=== PATIENT | female | born 1930 | race Caucasian/White ===

== ENCOUNTER 2019-07-18 13:14 | Inpatient (IN) | payer MEDICARE, BC ==
[2019-07-18 13:57] LABS: Basophils % (A) 1 %; Eosinophils % (A) 0 %; HCT 37.6 % (34.0-46.0); HGB 12.2 gm/dL (11.4-16.0); Lymphocytes # (A) 1.7 k/uL (1.0-4.8); Lymphocytes % (A) 29 %; MCH 31.3 pg (25.0-35.0); MCHC 32.3 g/dL (31.0-37.0); MCV 96.7 fL (80.0-100.0); Mean Platelet Volume 7.3; Monocytes # (A) 0.3 k/uL (0-1.0); Monocytes % (A) 6 %; Neutrophils # (A) 3.7 k/uL (1.3-7.7); Neutrophils % (A) 62 %; Platelet Count 208 k/uL (150-450); RBC 3.89 m/uL (3.80-5.40); RDW 15.3 % (11.5-15.5); WBC 5.9 k/uL (3.8-10.6)
[2019-07-18 14:08] LABS: Albumin 4.6 g/dL (3.5-5.0); Calcium 10.1 mg/dL (8.4-10.2); Total Bilirubin 1.1 mg/dL (0.2-1.3); Total Protein 8.2 g/dL (6.3-8.2)
[2019-07-18] MEDS ORDERED: DEXTROSE 50% SYRINGE 50 ML IVP STA (14:28)
[2019-07-18] MEDS ORDERED: SODIUM POLYSTYRENE SULFONATE 15 GM/60 ML BOTTLE PO STA (14:29)
[2019-07-18] MEDS ORDERED: INSULIN REGULAR 100 UNIT/ML VIAL IV ONE (14:29)
[2019-07-18] MEDS ORDERED: SODIUM CHLORIDE 0.9% 1,000 ML IV STA (14:30)
[2019-07-18] MEDS ORDERED: NALOXONE 0.4 MG/ML 1 ML VIAL IV PRN (14:30)
--- NOTE | 2019-07-18 14:37 | ED ---
General Adult HPI - General Chief complaint: Recheck/Abnormal Lab/Rx Stated complaint: abnormal labs Time Seen by Provider: 07/18/19 13:36 Source: patient, family Mode of arrival: ambulatory Limitations: no limitations - History of Present Illness Initial comments: Patient is an 89-year-old female presenting to the emergency department with a chief complaint of abnormal labs. Patient reports she was contacted by her primary care to inform her that her potassium levels are elevated. Patient reports she had labs drawn several days prior and her potassium levels are only slightly elevated at the time. This was a repeat blood draw. Patient denies any nausea or vomiting, denies weakness, fatigue or chest palpitations. Patient does have a history of A. fib. - Related Data Allergies Allergy/AdvReac Type Severity Reaction Status Date / Time No Known Allergies Allergy Verified 07/18/19 13:22 Review of Systems ROS Statement: Those systems with pertinent positive or pertinent negative responses have been documented in the HPI. ROS Other: All systems not noted in ROS Statement are negative. Past Medical History Past Medical History: Atrial Fibrillation, Hypertension, Osteoarthritis (OA) Additional Past Medical History / Comment(s): GOUT History of Any Multi-Drug Resistant Organisms: None Reported Past Surgical History: Hysterectomy, Orthopedic Surgery Additional Past Surgical History / Comment(s): Lung Past Psychological History: No Psychological Hx Reported Smoking Status: Former smoker Past Alcohol Use History: Occasional Past Drug Use History: None Reported General Exam Limitations: no limitations General appearance: alert, in no apparent distress Head exam: Present: atraumatic, normocephalic, normal inspection Eye exam: Present: normal appearance Pupils: Present: normal accommodation ENT exam: Present: normal exam, mucous membranes moist, normal external ear exam Neck exam: Present: normal inspection, full ROM Respiratory exam: Present: normal lung sounds bilaterally Cardiovascular Exam: Present: regular rate, normal rhythm, normal heart sounds Extremities exam: Present: normal inspection, full ROM Back exam: Present: normal inspection, full ROM Neurological exam: Present: alert, oriented X3 Psychiatric exam: Present: normal affect, normal mood Skin exam: Present: warm, intact, normal color Course Vital Signs 07/18/19 13:19 Temperature 97.3 F L Pulse Rate 82 Respiratory 20 Rate Blood Pressure 152/76 O2 Sat by Pulse 99 Oximetry Medical Decision Making - Medical Decision Making Patient is an 89-year-old female presenting to the emergency department with a c hief complaint of abnormal labs. Patient was sent to the ED by her primary care for hyperkalemia. Repeat labs indicate potassium levels of 6.0. Patient also has decreased kidney function which could be due to dehydration. The hypokalemia could also be due to dehydration. Patient given fluids, calcium gluconate, D50, insulin ankle axilla. EKG does show peaked T waves in V4 through V6. Patient will be admitted for further medical management. Case discussed with Dr. Hernandez. Admitting physician is . - Lab Data Result diagrams: 07/18/19 13:38 07/18/19 13:38 Lab Results 07/18/19 07/18/19 Range/Units 13:38 13:38 WBC 5.9 (3.8-10.6) k/uL RBC 3.89 (3.80-5.40) m/uL Hgb 12.2 (11.4-16.0) gm/dL Hct 37.6 (34.0-46.0) % MCV 96.7 (80.0-100.0) fL MCH 31.3 (25.0-35.0) pg MCHC 32.3 (31.0-37.0) g/dL RDW 15.3 (11.5-15.5) % Plt Count 208 (150-450) k/uL Neutrophils % 62 % Lymphocytes % 29 % Monocytes % 6 % Eosinophils % 0 % Basophils % 1 % Neutrophils # 3.7 (1.3-7.7) k/uL Lymphocytes # 1.7 (1.0-4.8) k/uL Monocytes # 0.3 (0-1.0) k/uL Eosinophils # 0.0 (0-0.7) k/uL Basophils # 0.0 (0-0.2) k/uL Sodium 139 (137-145) mmol/L Potassium 6.0 H (3.5-5.1) mmol/L Chloride 104 (98-107) mmol/L Carbon Dioxide 24 (22-30) mmol/L Anion Gap 11 mmol/L BUN 43 H (7-17) mg/dL Creatinine 1.10 H (0.52-1.04) mg/dL Est GFR (CKD-EPI)AfAm 52 (>60 ml/min/1.73 sqM) Est GFR (CKD-EPI)NonAf 45 (>60 ml/min/1.73 sqM) Glucose 115 H (74-99) mg/dL Calcium 10.1 (8.4-10.2) mg/dL Total Bilirubin 1.1 (0.2-1.3) mg/dL AST 26 (14-36) U/L ALT 10 (9-52) U/L Alkaline Phosphatase 65 (38-126) U/L Total Protein 8.2 (6.3-8.2) g/dL Albumin 4.6 (3.5-5.0) g/dL Disposition Clinical Impression: Hyperkalemia, Acute electrocardiogram changes Disposition: ADMITTED IP TO THIS [facility] Condition: Stable Instructions (If sedation given, give patient instructions): Hyperkalemia (ED) Additional Instructions: Patient will be admitted. Is patient prescribed a controlled substance at d/c from ED?: No Referrals: Yo Valdivia MD [Primary Care Provider] - 1-2 days Time of Disposition: 14:37
[2019-07-18] MEDS ORDERED: CALCIUM GLUCONATE 1 GM in SODIUM CHLORIDE 0.9% 100 ML IVPB ONE (14:45)
[2019-07-18] MEDS: SODIUM CHLORIDE 0.9% 1,000 ML IV SCH (15:05)
[2019-07-18 15:25] VITALS: RESP 16
[2019-07-18 16:38] LABS: Appearance,Urine Clear (Clear); Bacteria,Urine Rare /hpf; Bilirubin,Urine Negative (Negative); Blood,Urine Negative (Negative); Color,Urine Light Yellow; Glucose,Urine (UA) Negative (Negative); Ketones,Urine Negative (Negative); Leukocyte Esterase,Urine Small (Negative); Mucus,Urine Rare /hpf; Nitrite,Urine Negative (Negative); PH, Urine 6.5 (5.0-8.0); Protein,Urine Negative (Negative); RBC,Urine 1 /hpf (0-5); Specific Gravity,Urine 1.009 (1.001-1.035); Squamous Epithelial Cell,Urine <1 /hpf (0-4); Urobilinogen,Urine <2.0 mg/dL (<2.0); WBC,Urine 16 /hpf (0-5)
[2019-07-18] MEDS: SOTALOL 80 MG TAB PO SCH (20:41)
[2019-07-18] MEDS: APIXABAN 2.5 MG TABLET PO SCH (20:41)
--- NOTE | 2019-07-18 23:05 | P.HPIM ---
History of Present Illness H&P Date: 07/18/19 Chief Complaint: Hyperkalemia Patient is a 89-year-old female with a known history of paroxysmal atrial fibrillation on anticoagulation, hypertension, osteoarthritis and gout and previous history of smoking was sent to Hospital by her primary care physician due to elevated potassium level. Patient had repeat potassium done in the ER showed 6.0. Patient was given insulin/dextrose. Patient does take lisinopril/hydrochlorothiazide and sotalol at home. Denied any nausea vomiting or diarrhea. Denied any [id number] pain medication use. No chest pain or shortness of breath or palpitations. BUN and 43 and creatinine 1.1 EKG showed normal sinus rhythm with peaked T waves. Review of Systems Constitutional: Patient denies any fever or chills . No generalized weakness or weight loss. Abdomen: Patient denied nausea vomiting and diarrhea and abdominal pain. Cardiovascular: Patient denies any chest pain or short of breath no palpitations. Respiratory: patient denied any cough is from production. No shortness of breath Neurologic: Patient denied any numbness or tingling headache. Musculoskeletal: Patient denies any complaints of joint swelling or deformity. Skin: Negative Psychiatric: Negative Endocrine: No heat or cold intolerance. No recent weight gain. Genitourinary: No dysuria or hematuria. All other 14 point ROS negative except the above Past Medical History Past Medical History: Atrial Fibrillation, Hypertension, Osteoarthritis (OA) Additional Past Medical History / Comment(s): GOUT History of Any Multi-Drug Resistant Organisms: None Reported Past Surgical History: Hysterectomy, Orthopedic Surgery Additional Past Surgical History / Comment(s): Lung Past Psychological History: No Psychological Hx Reported Smoking Status: Former smoker Past Alcohol Use History: Occasional Past Drug Use History: None Reported Medications and Allergies Home Medications Medication Instructions Recorded Confirmed Type Allopurinol [Zyloprim] 100 mg PO DAILY 07/18/19 07/18/19 History Apixaban [Eliquis] 2.5 mg PO BID 07/18/19 07/18/19 History Hydrochlorothiazide [Hydrodiuril] 25 mg PO DAILY 07/18/19 07/18/19 History Lisinopril [Zestril] 20 mg PO DAILY 07/18/19 07/18/19 History Sotalol [Betapace] 80 mg PO Q12H 07/18/19 07/18/19 History Allergies Allergy/AdvReac Type Severity Reaction Status Date / Time No Known Allergies Allergy Verified 07/18/19 14:37 Physical Exam Vitals: Vital Signs Temp Pulse Resp BP Pulse Ox 07/18/19 15:24 97.9 F 65 16 150/99 99 07/18/19 13:19 97.3 F L 82 20 152/76 99 Intake and Output 07/18/19 07/18/19 07/18/19 06:59 14:59 22:59 Other: Weight 49.895 kg PHYSICAL EXAMINATION: Patient is lying in the bed comfortably, no acute distress, awake alert and oriented.. HEENT: Normocephalic. Neck is supple. Pupils reactive. Nostrils clear. Oral cavity is moist. Ears reveal no drainage. Neck reveals no JVD, carotid bruits, or thyromegaly. CHEST EXAMINATION: Trachea is central. Symmetrical expansion. Lung collins clear to auscultation and percussion. CARDIAC: Normal S1, S2 with no gallops. No murmurs ABDOMEN: Soft. Bowel sounds normal. No organomegaly. No abdominal bruits. Extremities: reveal no edema. No clubbing or cyanosis Neurologically awake, alert, oriented x3 with well-coordinated movements. No focal deficits noted Skin: No rash or skin lesions. Psychiatric: Coperative. Nonsuicidal Musculoskeletal: No joint swelling or deformity. Normal range of motion. Results CBC & Chem 7: 07/18/19 13:38 07/18/19 13:38 Labs: Abnormal Lab Results - Last 24 Hours (Table) 07/18/19 Range/Units 13:38 Potassium 6.0 H (3.5-5.1) mmol/L BUN 43 H (7-17) mg/dL Creatinine 1.10 H (0.52-1.04) mg/dL Glucose 115 H (74-99) mg/dL Thrombosis Risk Factor Assmnt - DVT/VTE Prophylaxis DVT/VTE Prophylaxis: Pharmacologic Prophylaxis ordered Assessment and Plan Assessment: Hyperkalemia with EKG changes/ Peaked T waves. Hyperkalemia likely due to acute kidney injury Acute kidney injury most likely prerenal Hypertension Paroxysmal atrial fibrillation on anticoagulation Gout Osteoarthritis Previous history of smoking Plan: Patient will be continued on IV hydration and monitor renal function. Repeat potassium level. Will hold hydrochlorothiazide and lisinopril. Continue with sotalol. Continue with telemetry monitoring. Further recommendations based on the clinical course. Time with Patient: Greater than 30
[2019-07-19] MEDS: SODIUM CHLORIDE 0.9% 1,000 ML IV SCH ×2 (00:02→08:27)
[2019-07-19 06:34] LABS: Albumin 2.9 g/dL (3.5-5.0); Calcium 8.6 mg/dL (8.4-10.2); Potassium 4.5 mmol/L (3.5-5.1); Total Bilirubin 0.7 mg/dL (0.2-1.3); Total Protein 5.4 g/dL (6.3-8.2)
[2019-07-19] MEDS: SOTALOL 80 MG TAB PO SCH (08:27)
[2019-07-19] MEDS: APIXABAN 2.5 MG TABLET PO SCH (08:27)
[2019-07-19 08:30] VITALS: TEMP 97.7
[2019-07-19] MEDS ORDERED: ALLOPURINOL 100 MG TAB PO SCH (09:00)
[2019-07-19 11:46] VITALS: BP 139/71; PULSE 62
[2019-07-19 12:56] VITALS: BMI 18.8
== END 2019-07-19 15:46 | disposition home or self-care (01) | DRG 641 ==
LOC: EC 13:14 → 3SCARD 14:26
PROVIDERS: ADMIT Internal Medicine; ATTEND Internal Medicine
DX: E87.5 Hyperkalemia (principal); N17.9 Acute kidney failure, unspecified; I10 Essential (primary) hypertension; I48.0 Paroxysmal atrial fibrillation; M10.9 Gout, unspecified; M19.90 Unspecified osteoarthritis, unspecified site; Z79.01 Long term (current) use of anticoagulants; Z79.899 Other long term (current) drug therapy; Z87.891 Personal history of nicotine dependence; Z90.710 Acquired absence of both cervix and uterus; R94.31 Abnormal electrocardiogram [ECG] [EKG]
CPT/HCPCS: 36415; 80053; 81001; 85025; 93005; 96365; 96375; 99285

== ENCOUNTER 2019-11-04 17:02 | Inpatient (IN) | payer MEDICARE, BC ==
[2019-11-04] MEDS ORDERED: NITROGLYCERIN SL TABS 0.4 MG TAB SUBLINGUAL PRN (17:37)
--- NOTE | 2019-11-04 17:37 | ED ---
General Adult HPI - General Chief complaint: Recheck/Abnormal Lab/Rx Stated complaint: fall Time Seen by Provider: 11/04/19 17:10 Source: patient, EMS, RN notes reviewed, old records reviewed Mode of arrival: EMS Limitations: no limitations - History of Present Illness Initial comments: This is an 89-year-old female presents emergency Department from [facility]. Patient went to [facility] because she fell today and hit her face on the floor she does not remember anything prior to the event or the event itself. Patient does have a nasal bone fracture. Patient had a CAT scan of the head and neck at [facility] as well as the chest and were all read as negative. Patient's EKG shows some peaked T waves but the troponin was mildly OF a one to send the patient here for the syncopal episode and the elevated troponin. Patient currently has no complaints whatsoever. Patient is on eliquis. - Related Data Home Medications Medication Instructions Recorded Confirmed Allopurinol [Zyloprim] 100 mg PO DAILY 07/18/19 07/18/19 Apixaban [Eliquis] 2.5 mg PO BID 07/18/19 07/18/19 Lisinopril [Zestril] 20 mg PO DAILY 07/18/19 07/18/19 Sotalol [Betapace] 80 mg PO Q12H 07/18/19 07/18/19 Allergies Allergy/AdvReac Type Severity Reaction Status Date / Time No Known Allergies Allergy Verified 07/18/19 14:37 Review of Systems ROS Statement: Those systems with pertinent positive or pertinent negative responses have been documented in the HPI. ROS Other: All systems not noted in ROS Statement are negative. Past Medical History Past Medical History: Atrial Fibrillation, Hypertension, Osteoarthritis (OA) Additional Past Medical History / Comment(s): GOUT History of Any Multi-Drug Resistant Organisms: None Reported Past Surgical History: Hysterectomy, Orthopedic Surgery Additional Past Surgical History / Comment(s): Lung Past Psychological History: No Psychological Hx Reported Smoking Status: Former smoker Past Alcohol Use History: Occasional Past Drug Use History: None Reported General Exam - General Exam Comments Initial Comments: GENERAL: Patient is well-developed and well-nourished. Patient is nontoxic and well- hydrated and is in no acute distress. ENT: Neck is soft and supple. No significant lymphadenopathy is noted. Oropharynx is clear. Moist mucous membranes. Neck has full range of motion without eliciting any pain. EYES: The sclera were anicteric and conjunctiva were pink and moist. Extraocular movements were intact and pupils were equal round and reactive to light. Eyelids were unremarkable. PULMONARY: Unlabored respirations. Good breath sounds bilaterally. No audible rales rhonchi or wheezing was noted. CARDIOVASCULAR: There is a regular rate and rhythm without any murmurs gallops or rubs. ABDOMEN: Soft and nontender with normal bowel sounds. No palpable organomegaly was noted. There is no palpable pulsatile mass. SKIN: Patient has ecchymosis to the right side of the neck and in the infraorbital regions. NEUROLOGIC: Patient is alert and oriented x3. Cranial nerves II through XII are grossly intact. Motor and sensory are also intact. Normal speech, volume and content. Symmetrical smile. MUSCULOSKELETAL: Normal extremities with adequate strength and full range of motion. Patient has nasal bone tenderness LYMPHATICS: No significant lymphadenopathy is noted PSYCHIATRIC: Normal psychiatric evaluation. Limitations: no limitations Course Vital Signs 11/04/19 17:07 Temperature 97.7 F Pulse Rate 68 Respiratory 20 Rate Blood Pressure 193/85 O2 Sat by Pulse 98 Oximetry Medical Decision Making - Medical Decision Making EKG shows normal sinus rhythm at 63 bpm NV interval 174 QRS is 74 Q-T intervals 450 QTC is 460. Patient's EKG shows no ST segment elevation or depression or T wave abnormalities are noted. Patient does have some peaked T waves in the precordial leads. I spoke with Dr. Fragoso he agreed to admit the patient admitted the patient I consult cardiology. Disposition Clinical Impression: Syncope and collapse, Nasal fracture, Elevated troponin Disposition: ADMITTED IP TO THIS HOSP Referrals: Yo Valdivia MD [Primary Care Provider] - 1-2 days Time of Disposition: 17:37
[2019-11-04] MEDS ORDERED: hydrALAZINE HCL 20 MG/ML 1 ML VIAL IVP STA (18:05)
[2019-11-04] MEDS: NITROGLYCERIN OINT 1 INCH/GM PACKET TOPICAL SCH ×2 (18:11→22:50)
[2019-11-04 20:39] LABS: Glucose,Whole Blood 121 mg/dL (75-99)
[2019-11-05] MEDS ORDERED: ACETAMINOPHEN TAB 500 MG TAB PO PRN (00:18)
[2019-11-05] MEDS: ALPRAZolam 0.25 MG TAB PO PRN ×2 (00:28→17:40)
[2019-11-05] MEDS: NITROGLYCERIN OINT 1 INCH/GM PACKET TOPICAL SCH ×3 (05:24→17:40)
[2019-11-05 06:01] LABS: Cholesterol 120 mg/dL (<200); HDL Cholesterol 36 mg/dL (40-60); LDL Cholesterol,Calculated 70 mg/dL (0-99); Triglycerides 70 mg/dL (<150)
[2019-11-05 06:10] LABS: Glucose,Whole Blood 89 mg/dL (75-99)
[2019-11-05] MEDS: ASPIRIN 325 MG TAB PO SCH (09:12)
--- NOTE | 2019-11-05 09:22 | P.CRDCN ---
<Jocelyne Craig E - Last Filed: 11/05/19 09:10> History of Present Illness Consult date: 11/05/19 Requesting physician: Glenys Fragoso Consult reason: sycope Chief complaint: Syncope History of present illness: This is an 89-year-old female who follows with Dr. Neri in the office. 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 Patient is providing history as well as her son who is at the bedside. According to the patient, she had one fall because she became unsteady on her feet, she hit the back of her head and has a swollen area there, subsequent to that the patient states that she had an episode where she fell flat on her face, she is unsure as to whether or not she lost consciousness or how she even fell to the floor, it appears that it was likely a syncopal episode. She does state that she gets intermittent episodes of lightheadedness and does get up from a sitting position to standing position fairly quickly when she feels lightheaded. Her laboratory data as well as other testing was performed at [facility], her initial troponin there was a 0.039, her EKG showed a normal sinus rhythm with peaked T waves, nonspecific ST-T wave changes. She was noted to have mild abnormality in d-dimer, a CAT scan of the head was performed which revealed a hematoma, no other acute findings. A chest x-ray was also performed which showed some mild COPD with no acute changes. Blood pressure here 138/60 with a heart rate in the 60s, 97% on room air, she is afebrile. Troponin 0.038, 0.051, 0.063. Creatinine is 0.8, CBC is normal. At the time of my examination this morning, the patient is sitting up at bedside, states that she feels well, denies any dizziness or lightheadedness. Her most recent office visit with Dr. Neri was in May 2019, she was directed at that time to take a regular a blood pressure recording at home, and was also recommended to have a 24-hour Holter before her next visit. Past Medical History Past Medical History: Atrial Fibrillation, Hypertension, Osteoarthritis (OA) Additional Past Medical History / Comment(s): GOUT History of Any Multi-Drug Resistant Organisms: None Reported Past Surgical History: Hysterectomy, Orthopedic Surgery Additional Past Surgical History / Comment(s): Lung sx Past Anesthesia/Blood Transfusion Reactions: No Reported Reaction Past Psychological History: No Psychological Hx Reported Smoking Status: Former smoker Past Alcohol Use History: Occasional Past Drug Use History: None Reported Medications and Allergies Home Medications Medication Instructions Recorded Confirmed Type Allopurinol [Zyloprim] 100 mg PO DAILY 07/18/19 11/04/19 History Apixaban [Eliquis] 2.5 mg PO BID 07/18/19 11/04/19 History Lisinopril [Zestril] 20 mg PO DAILY 07/18/19 11/04/19 History Sotalol [Betapace] 80 mg PO Q12H 07/18/19 11/04/19 History ALPRAZolam [Xanax] 0.25 mg PO HS PRN 11/04/19 11/04/19 History Hydrochlorothiazide [Hydrodiuril] 25 mg PO DAILY 11/04/19 11/04/19 History Allergies Allergy/AdvReac Type Severity Reaction Status Date / Time No Known Allergies Allergy Verified 07/18/19 14:37 Physical Exam Vitals: Vital Signs Temp Pulse Pulse Resp BP BP Pulse Ox 11/05/19 04:00 97.7 F 69 16 139/64 97 11/04/19 22:46 97.9 F 77 18 167/98 97 11/04/19 20:29 97.7 F 72 18 155/77 97 11/04/19 19:57 73 18 128/62 97 11/04/19 19:55 71 18 128/62 97 11/04/19 18:45 72 20 155/77 98 11/04/19 17:10 78 20 198/101 98 11/04/19 17:07 97.7 F 68 20 193/85 98 Intake and Output 11/04/19 11/05/19 11/05/19 22:59 06:59 14:59 Intake Total 250 Balance 250 Intake: Oral 250 Other: # Voids 2 Weight 51.71 kg 49.5 kg PHYSICAL EXAMINATION: GENERAL: 89-year-old female in no acute distress at the time of my examination HEENT: Head is atraumatic, normocephalic. Pupils equal, round. Sclera anicteric. Conjunctiva are clear. Mucous membranes of the mouth are moist. Neck is supple. There is no elevated jugular venous pressure. No carotid bruit is heard. Patient does have an area of swelling to her posterior scalp area, she has some ecchymosis noted below the eyes and on the nose. HEART EXAMINATION: Heart S1 and S2 systolic ejection murmur is heard CHEST EXAMINATION:[ Lungs are clear to auscultation and precussion. No chest wall tenderness is noted on palpation or with deep breathing.] ABDOMEN: [ Soft, nontender. Bowel sounds are heard. No organomegaly noted]. EXTREMITIES:[ 2+ peripheral pulses with no evidence of peripheral edema and no calf tenderness noted]. NEUROLOGIC [patient is awake, alert and oriented 3 .] . Results Cardiac Enzymes 11/04/19 11/04/19 11/05/19 Range/Units 17:27 23:46 05:30 Troponin I 0.038 H* 0.051 H* 0.063 H* (0.000-0.034) ng/mL Lipids 11/05/19 Range/Units 05:30 Triglycerides 70 (<150) mg/dL Cholesterol 120 (<200) mg/dL HDL Cholesterol 36 L (40-60) mg/dL Current Medications Generic Name Dose Route Start Last Admin Trade Name Freq PRN Reason Stop Dose Admin Acetaminophen 500 mg 11/05/19 00:18 11/05/19 00:29 Tylenol Tab PO 500 mg Q6HR PRN Administration Fever and/ or Pain Alprazolam 0.25 mg 11/05/19 00:17 11/05/19 00:28 Xanax PO 0.25 mg DAILY PRN Administration Anxiety Aspirin 325 mg 11/05/19 09:00 Aspirin PO DAILY YOVANY Nitroglycerin 0.4 mg 11/04/19 17:37 Nitrostat SUBLINGUAL Q5M PRN Chest Pain Nitroglycerin 1 inch 11/04/19 18:00 11/05/19 05:24 Nitro-Bid Oint TOPICAL Not Given Q6HR YOVANY Intake and Output 11/04/19 11/05/19 11/05/19 22:59 06:59 14:59 Intake Total 250 Balance 250 Intake: Oral 250 Other: # Voids 2 Weight 51.71 kg 49.5 kg EKG Interpretations (text) EKG shows normal sinus rhythm with peaked T waves, no acute changes noted. Assessment and Plan Plan: Assessment and plan #1 syncope, rule out cardiac causes #2 abnormal d-dimer, rule out possibility of pulmonary embolism #3 history of hypertension #4 paroxysmal atrial fibrillation on Eliquis for anticoagulation, remaining in normal sinus rhythm at this time. #5 history of prior nicotine dependence #6 abnormality in troponin, rule out possibility of pulmonary embolism, patient denies any chest discomfort, not clinically suggestive of acute coronary syndrome. Plan We will obtain a CAT scan of the chest to rule out possibility of pulmonary embolism. We will also obtain an echocardiogram with Doppler study, check orthostatic heart rate and blood pressure every shift. Monitor for any tachycardia or bradycardia arrhythmias for possible source of her syncope. Patient may also benefit from a tilt table test. We will resume the patient's Eliquis and sotalol. Further recommendations to follow. DNP note has been reviewed, I agree with a documented findings and plan of care. Patient was seen and examined. <Julio Culp - Last Filed: 11/06/19 11:32> History of Present Illness Reason for Consult (text): Patient presented with a syncopal spell with loss of consciousness and facial trauma. She has a history of paroxysmal atrial fibrillation and is on sotalol 80 mg twice daily. So far no bradycardia has been detected on telemetry monitoring I had a very detailed discussion with her son and explained the pros and cons of various types of monitors and recommended implantation of loop monitor. He understood exactly why a loop monitor would be the most beneficial approach to determine whether she has paroxysmal bradycardic episodes or if her syncope is related to tachyarrhythmias which she does not feel or if her syncopal spells and future associated with normal rhythm and rate Either way it will help with formulating a plan of treatment Physical Exam Vitals: Vital Signs Temp Pulse Pulse Pulse Resp BP BP 11/06/19 08:00 96.1 F L 80 75 16 131/63 134/63 11/06/19 04:00 98.5 F 62 18 11/05/19 23:39 98.1 F 66 18 11/05/19 23:37 76 18 11/05/19 20:00 98.7 F 76 18 11/05/19 16:00 75 16 11/05/19 12:00 78 16 BP Pulse Ox 11/06/19 08:00 98 11/06/19 04:00 144/75 94 L 11/05/19 23:39 143/69 95 11/05/19 23:37 11/05/19 20:00 149/71 97 11/05/19 16:00 170/111 97 11/05/19 12:00 149/84 98 Intake and Output 11/05/19 11/06/19 11/06/19 22:59 06:59 14:59 Intake Total 220 Balance 220 Intake: IV 100 Oral 120 Other: # Voids 0 3 Weight 50 kg Results 11/05/19 05:30 Current Medications Generic Name Dose Route Start Last Admin Trade Name Freq PRN Reason Stop Dose Admin Acetaminophen 500 mg 11/05/19 00:18 11/05/19 00:29 Tylenol Tab PO 500 mg Q6HR PRN Administration Fever and/ or Pain Alprazolam 0.25 mg 11/05/19 00:17 11/05/19 17:40 Xanax PO 0.25 mg DAILY PRN Administration Anxiety Apixaban 2.5 mg 11/05/19 21:00 11/06/19 09:01 Eliquis PO 2.5 mg BID YOVANY Administration Aspirin 325 mg 11/05/19 09:00 11/06/19 09:01 Aspirin PO 325 mg DAILY YOVNAY Administration Sodium Chloride 1,000 mls @ 50 mls/hr 11/06/19 10:15 Saline 0.9% IV .Q20H YOVANY Sodium Chloride 1,000 mls @ 50 mls/hr 11/06/19 10:15 Saline 0.9% IV .Q20H YOVANY Nitroglycerin 0.4 mg 11/04/19 17:37 Nitrostat SUBLINGUAL Q5M PRN Chest Pain Nitroglycerin 1 inch 11/04/19 18:00 11/06/19 05:51 Nitro-Bid Oint TOPICAL Not Given Q6HR YOVANY Sotalol HCl 80 mg 11/05/19 09:30 11/06/19 09:01 Betapace PO 80 mg Q12H YOVANY Administration Intake and Output 11/05/19 11/06/19 11/06/19 22:59 06:59 14:59 Intake Total 220 Balance 220 Intake: IV 100 Oral 120 Other: # Voids 0 3 Weight 50 kg 11/05/19 05:30
[2019-11-05 10:50] LABS: Albumin 3.2 g/dL (3.5-5.0); Calcium 8.6 mg/dL (8.4-10.2); Potassium 4.3 mmol/L (3.5-5.1); Total Bilirubin 1.1 mg/dL (0.2-1.3); Total Protein 5.9 g/dL (6.3-8.2)
[2019-11-05 11:32] VITALS: BMI 19.3
[2019-11-05 11:32] LABS: Glucose,Whole Blood 98 mg/dL (75-99)
--- NOTE | 2019-11-05 12:17 | CT ---
EXAMINATION TYPE: CT angio chest DATE OF EXAM: 11/05/2019 COMPARISON: NONE HISTORY: Elevated d dimer, possible PE. Chest pain. CT DLP: 170.6 mGycm. Automated Exposure Control for Dose Reduction was Utilized. CONTRAST: CTA scan of the thorax is performed with IV Contrast, patient injected with 54 mL of Isovue 370, pulm onary embolism protocol. MIP Images are created on CT scanner and reviewed. FINDINGS: LUNGS: Multifocal pleural parenchymal scarring is seen particularly at the lung bases and in the ling jonas. Although there is a nodular contour at the left lung base on image 107 this is elongated on yen nal image 137 representing scarring. Mild background emphysematous changes in the lungs. The lungs ar e grossly clear, there is no concerning parenchymal mass or nodule identified. There is no pleural effusion or pneumothorax seen. The tracheobronchial tree is patent. MEDIASTINUM: The left vertebral artery originates strictly from the aortic arch, normal anatomic vari ant. Ascending thoracic aorta and aortic root are within normal limits of size measuring 2.9 cm and 3 .7 cm respectively. There is satisfactory enhancement of the pulmonary artery and its branches, there is no CT evidence for pulmonary embolism. There are no greater than 1 cm hilar or mediastinal lymph nodes. There are moderate coronary artery calcifications seen. No cardiomegaly or pericardial effus ion is seen. OTHER 9 mm left upper pole renal cyst is incidentally seen. Degenerative disc disease is seen of the lower cervical spine as well as sclerotic focus of the T2 vertebral body at the right pedicle. Minima l degenerative change of the thoracic spine. IMPRESSION: 1. No evidence of pulmonary embolus. 2. Moderate three-vessel coronary calcification, a marker of coronary artery disease. 3. Indeterminate sclerotic focus of the right T2 pedicle. Bone scan could be considered for further e valuation. 4. Mild emphysematous changes and multifocal pleural parenchymal scarring.
[2019-11-05] MEDS: SOTALOL 80 MG TAB PO SCH ×2 (12:37→20:34)
--- NOTE | 2019-11-05 14:23 | P.HPIM ---
History of Present Illness 81-year-old female had history of atrial fibrillation and syncope since the past this is the third episode. Patient has proximal A. fib. Patient was going into her home from garage had a syncopal episode which was not witnessed by anyone patient although denied any tongue biting loss of bowel or bladder incontinence patient felt okay after that. Patient doesn't remember after losing consciousness patient did not feel lightheaded patient denied any chest pain. EKG showed some T waves in the septal and lateral leads, patient had a scalp hematoma and a CAT scan of the head and no PE on the CAT scan of the chest. Patient in couple anti-happens medications which have not restarted here in spite of which patient blood pressure remains normal because of which I'm cardio to hold and the current to monitor the blood pressure. Patient is not dehydrated serum creatinine is within normal limits and that there is a minimal Troponin elevation not consistent with acute microinfarction. Patient does have some intermittent episodes of lightheadedness. 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 Patient doesn't have any signs or symptoms of sepsis. Review of Systems REVIEW OF SYSTEMS: CONSTITUTIONAL: No fever, no malaise, no fatigue. HEENT: No recent visual problems or hearing problems. Denied any sore throat. CARDIOVASCULAR: No chest pain, orthopnea, PND, no palpitations, no syncope. PULMONARY: No shortness of breath, no cough, no hemoptysis. GASTROINTESTINAL: No diarrhea, no nausea, no vomiting, no abdominal pain. NEUROLOGICAL: No headaches, no weakness, no numbness. HEMATOLOGICAL: Denies any bleeding or petechiae. GENITOURINARY: Denies any burning micturition, frequency, or urgency. MUSCULOSKELETAL/RHEUMATOLOGICAL: Denies any joint pain, swelling, or any muscle pain. ENDOCRINE: Denies any polyuria or polydipsia. The rest of the 14-point review of systems is negative. Past Medical History Past Medical History: Atrial Fibrillation, Hypertension, Osteoarthritis (OA) Additional Past Medical History / Comment(s): GOUT History of Any Multi-Drug Resistant Organisms: None Reported Past Surgical History: Hysterectomy, Orthopedic Surgery Additional Past Surgical History / Comment(s): Lung sx Past Anesthesia/Blood Transfusion Reactions: No Reported Reaction Past Psychological History: No Psychological Hx Reported Smoking Status: Former smoker Past Alcohol Use History: Occasional Past Drug Use History: None Reported Medications and Allergies Home Medications Medication Instructions Recorded Confirmed Type Allopurinol [Zyloprim] 100 mg PO DAILY 07/18/19 11/04/19 History Apixaban [Eliquis] 2.5 mg PO BID 07/18/19 11/04/19 History Lisinopril [Zestril] 20 mg PO DAILY 07/18/19 11/04/19 History Sotalol [Betapace] 80 mg PO Q12H 07/18/19 11/04/19 History ALPRAZolam [Xanax] 0.25 mg PO HS PRN 11/04/19 11/04/19 History Hydrochlorothiazide [Hydrodiuril] 25 mg PO DAILY 11/04/19 11/04/19 History Allergies Allergy/AdvReac Type Severity Reaction Status Date / Time No Known Allergies Allergy Verified 07/18/19 14:37 Physical Exam Vitals: Vital Signs Temp Pulse Pulse Resp BP BP Pulse Ox 11/05/19 12:00 78 16 149/84 98 11/05/19 08:00 97.3 F L 76 16 128/64 98 11/05/19 04:00 97.7 F 69 16 139/64 97 11/04/19 22:46 97.9 F 77 18 167/98 97 11/04/19 20:29 97.7 F 72 18 155/77 97 11/04/19 19:57 73 18 128/62 97 11/04/19 19:55 71 18 128/62 97 11/04/19 18:45 72 20 155/77 98 11/04/19 17:10 78 20 198/101 98 11/04/19 17:07 97.7 F 68 20 193/85 98 Intake and Output 11/04/19 11/05/19 11/05/19 22:59 06:59 14:59 Intake Total 250 Balance 250 Intake: Oral 250 Other: # Voids 2 Weight 51.71 kg 49.5 kg 49.5 kg PHYSICAL EXAMINATION: GENERAL: The patient is alert and oriented x3, not in any acute distress. Thin built female. HEENT: Pupils are round and equally reacting to light. EOMI. No scleral icterus. No conjunctival pallor. Normocephalic, atraumatic. No pharyngeal erythema. No thyromegaly. CARDIOVASCULAR: S1 and S2 present. No murmurs, rubs, or gallops. PULMONARY: Chest is clear to auscultation, no wheezing or crackles. ABDOMEN: Soft, nontender, nondistended, normoactive bowel sounds. No palpable organomegaly. MUSCULOSKELETAL: No joint swelling or deformity. EXTREMITIES: No cyanosis, clubbing, or pedal edema. NEUROLOGICAL: Gross neurological examination did not reveal any focal deficits. SKIN: No rashes. Results CBC & Chem 7: 11/05/19 05:30 Labs: Abnormal Lab Results - Last 24 Hours (Table) 11/04/19 11/04/19 11/04/19 Range/Units 17:27 20:37 23:46 BUN (7-17) mg/dL POC Glucose (mg/dL) 121 H (75-99) mg/dL Troponin I 0.038 H* 0.051 H* (0.000-0.034) ng/mL Total Protein (6.3-8.2) g/dL Albumin (3.5-5.0) g/dL HDL Cholesterol (40-60) mg/dL 11/05/19 11/05/19 11/05/19 Range/Units 05:30 05:30 05:30 BUN 23 H (7-17) mg/dL POC Glucose (mg/dL) (75-99) mg/dL Troponin I 0.063 H* (0.000-0.034) ng/mL Total Protein 5.9 L (6.3-8.2) g/dL Albumin 3.2 L (3.5-5.0) g/dL HDL Cholesterol 36 L (40-60) mg/dL Thrombosis Risk Factor Assmnt - Choose All That Apply Any of the Below Risk Factors Present?: Yes Other Risk Factors: Yes Each Risk Factor Represents 3 Points: Age 75 years or older Other congenital or acquired thrombophilia - If yes, enter type in comment: No Thrombosis Risk Factor Assessment Total Risk Factor Score: 3 Thrombosis Risk Factor Assessment Level: Moderate Risk Assessment and Plan Plan: -Syncope: Patient will be monitored one more night here. Cardiology evaluated the patient they're considering tachybradycardia syndrome, cardiology discussed with the patient regarding loop recorder. Hypotension can be reason for her falls too, continue to hold off on antidepressant medications I do not see had diastolics going below 60 but close to [address] angios done to rule out pulmonary embolism -Hypertension: Currently to hold off on hydrocodone presently on AMANDA inhibitor for now continue with beta leander -proximal A. fib for which patient an adequate and beta leander which will be continued -Mild elevation of troponin which is nonspecific elevation are not consistent with acute microinfarction
[2019-11-05 16:49] LABS: Glucose,Whole Blood 103 mg/dL (75-99)
[2019-11-05] MEDS: APIXABAN 2.5 MG TABLET PO SCH (20:34)
[2019-11-06] MEDS: NITROGLYCERIN OINT 1 INCH/GM PACKET TOPICAL SCH ×3 (03:53→12:00)
[2019-11-06] MEDS: SOTALOL 80 MG TAB PO SCH (09:01)
[2019-11-06] MEDS: APIXABAN 2.5 MG TABLET PO SCH (09:01)
[2019-11-06] MEDS: ASPIRIN 325 MG TAB PO SCH (09:01)
[2019-11-06 09:05] VITALS: PULSE 75; RESP 16; TEMP 96.1
[2019-11-06] MEDS ORDERED: SODIUM CHLORIDE 0.9% 1,000 ML IV SCH ×2 (10:15)
[2019-11-06] MEDS ORDERED: SODIUM CHLORIDE 0.9% 250 ML IV ONE (10:31)
[2019-11-06] MEDS ORDERED: LIDOCAINE 1% INJ 10MG/ML (20 ML MDV) ONE (10:31)
[2019-11-06] MEDS ORDERED: MIDAZOLAM 2 MG/2 ML VIAL IVP ONE (11:09)
--- NOTE | 2019-11-06 11:14 | ECHOF ---
Referral Reason:syncope MEASUREMENTS -------- HEIGHT: 165.1 cm WEIGHT: 49.4 kg BP: 128/64 IVSd: 1.6 cm (0.6 - 1.1) LVIDd: 3.2 cm (3.9 - 5.3) LVPWd: 1.4 cm (0.6 - 1.1) IVSs: 1.6 cm LVIDs: 1.8 cm LVPWs: 1.5 cm LA Diam: 4.6 cm (2.7 - 3.8) LAESV Index (A-L): 34.73 ml/m Ao Diam: 3.2 cm (2.0 - 3.7) AV Cusp: 1.8 cm (1.5 - 2.6) MV EXCURSION: 11.497 mm (> 18.000) MV EF SLOPE: 49 mm/s (70 - 150) EPSS: 0.4 cm MV E Say: 0.51 m/s MV DecT: 279 ms MV A Say: 0.93 m/s MV E/A Ratio: 0.55 AR PHT: 624 ms RAP: 5.00 mmHg RVSP: 29.14 mmHg FINDINGS -------- Sinus rhythm. This was a technically good study. The left ventricular size is normal. There is moderate concentric left ventricular hypertrophy. O verall left ventricular systolic function is normal with, an EF between 55 - 60 %. The right ventricle is normal in size. The left atrium is mildly dilated. LA is midly dilated 29-33ml/m2. The right atrial size is normal. There is mild aortic valve sclerosis. There is mild aortic regurgitation. Mild mitral regurgitation is present. Mild tricuspid regurgitation present. Right ventricular systolic pressure is normal at < 35 mmHg. There is no evidence of pulmonary hypertension. There is no pulmonic regurgitation present. The aortic root size is normal. Echo free space represents a pericardial fat pad. CONCLUSIONS -------- 1. Sinus rhythm. 2. This was a technically good study. 3. The left ventricular size is normal. 4. There is moderate concentric left ventricular hypertrophy. 5. Overall left ventricular systolic function is normal with, an EF between 55 - 60 %. 6. The right ventricle is normal in size. 7. The left atrium is mildly dilated. 8. LA is midly dilated 29-33ml/m2. 9. The right atrial size is normal. 10. There is mild aortic valve sclerosis. 11. There is mild aortic regurgitation. 12. Mild mitral regurgitation is present. 13. Mild tricuspid regurgitation present. 14. Right ventricular systolic pressure is normal at < 35 mmHg. 15. There is no evidence of pulmonary hypertension. 16. There is no pulmonic regurgitation present. 17. The aortic root size is normal. 18. Echo free space represents a pericardial fat pad. AUDITOR: Christina Hunt RDCS
[2019-11-06] MEDS ORDERED: LIDOCAINE 1% INJ 10MG/ML (20 ML MDV) SQ ONE (11:15)
--- NOTE | 2019-11-06 11:33 | P.PCN ---
Preoperative Diagnosis: Loop monitor implant Indication: Syncope with facial trauma Patient was brought to the EP lab in a fasting state. Written informed consent was obtained prior to the procedure. The left pectoral area was prepped and draped per protocol. Intravenous antibiotic was administered preoperatively. A subcutaneous Loop monitor was implanted successfully and the wound was closed per protocol. The device was programmed to detect significant charles- arrhythmic and tachy-arrhythmic events, per protocol. Device and programming details: Syncope protocol Patient underwent EP procedure under conscious sedation/moderate sedation, monitoring of the level of consciousness and physiologic parameters including but not limited to vital signs and oxygenation. Patient tolerated the procedure well without any acute complications. Start time: 1114 Stop time: 1120
[2019-11-06 12:06] VITALS: BP 187/87
--- NOTE | 2019-11-06 13:48 | P.DS ---
Providers Date of admission: 11/06/19 07:04 Expected date of discharge: 11/06/19 Attending physician: Glenys Fragoso Consults: 11/04/19 17:38 Consult Physician Urgent Consulting Provider: [facility] Consult Reason/Comments: Syncope, elevated troponin Do you want consulting provider notified?: Yes Primary care physician: [facility] Course: Final diagnosis -Syncope -Hypotension -Hypertension -Paroxysmal atrial fibrillation -Mild elevation of troponin Discharge disposition Patient is being discharged in a stable condition with guarded prognosis to home. Patient will follow-up with primary care provider along with mechanic general operational test as discussed and scheduled in the outpatient setting. Total time taken is 35 minutes. History of present illness 81-year-old female had history of atrial fibrillation and syncope since the past this is the third episode. Patient has proximal A. fib. Patient was going into her home from garage had a syncopal episode which was not witnessed by anyone patient although denied any tongue biting loss of bowel or bladder incontinence patient felt okay after that. Patient doesn't remember after losing consciousness patient did not feel lightheaded patient denied any chest pain. EKG showed some T waves in the septal and lateral leads, patient had a scalp hematoma and a CAT scan of the head and no PE on the CAT scan of the chest. Patient in couple anti-happens medications which have not restarted here in spite of which patient blood pressure remains normal because of which I'm cardio to hold and the current to monitor the blood pressure. Patient is not dehydrated serum creatinine is within normal limits and that there is a minimal Troponin elevation not consistent with acute microinfarction. Patient does have some intermittent episodes of lightheadedness. 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 Patient doesn't have any signs or symptoms of sepsis. 11/06/2019 Patient is sitting up at the side of the bed after just receiving a loop recorder and was cleared by cardiology for discharge today. Patient will be following up with them in the office in the outpatient setting in 1-2 weeks. Patient's blood pressure slightly elevated today and will resume lisinopril 20 mg daily and will continue to hold hydrochlorothiazide until she follows up with her primary care provider. Currently patient's condition is stable and is asking to go home today. Patient denies any chest pain, shortness of breath, or palpitations. Patient is afebrile. Patient denies any nausea or vomiting and has been tolerating diet. On exam vital signs are stable. Temp is 96.1F, pulse is 80, respirations are 16, blood pressure is 187/87, oxygen saturation is 98% on room air. Patient's repeat blood pressure was 175/77 with a history of hypertension and will resume home medications upon discharge. Oxygen saturation is 95% on room air. Cardio S1, S2 are present. Respiratory system shows clear to auscultation. Abdomen is soft, thin, and nontender. Nervous system shows no focal deficits. please refer to medication reconciliation sheet for a list of medications. Patient Condition at Discharge: Stable Plan - Discharge Summary Discharge Rx Participant: No New Discharge Prescriptions: New Lisinopril 20 mg PO DAILY 30 Days #30 tab Continue Apixaban [Eliquis] 2.5 mg PO BID Allopurinol [Zyloprim] 100 mg PO DAILY Sotalol [Betapace] 80 mg PO Q12H ALPRAZolam [Xanax] 0.25 mg PO HS PRN PRN Reason: Agitation Discontinued Lisinopril [Zestril] 20 mg PO DAILY Hydrochlorothiazide [Hydrodiuril] 25 mg PO DAILY Discharge Medication List Allopurinol [Zyloprim] 100 mg PO DAILY 07/18/19 [History] Apixaban [Eliquis] 2.5 mg PO BID 07/18/19 [History] Sotalol [Betapace] 80 mg PO Q12H 07/18/19 [History] ALPRAZolam [Xanax] 0.25 mg PO HS PRN 11/04/19 [History] Lisinopril 20 mg PO DAILY 30 Days #30 tab 11/06/19 [Rx] Follow up Appointment(s)/Referral(s): Hany Neri MD [STAFF PHYSICIAN] - 11/18/19 11:00 am (Please keep previous follow up appointment. ) Yo Valdivia MD [Primary Care Provider] - 11/11/19 9:00 am (With Maribell. ) Patient Instructions/Handouts: Syncope (DC), Low-Sodium Diet (DC), Cardiac Loop Recorder Insertion (DC) Activity/Diet/Wound Care/Special Instructions: Activity Limited until follow-up Follow-up with primary care provider upon discharge Follow-up with cardiology as discussed and scheduled Continue current diet Discharge Disposition: HOME SELF-CARE
--- NOTE | 2019-11-06 15:13 | P.PN ---
Subjective Progress Note Date: 11/06/19 This is an 89-year-old female who follows with Dr. Neri in the office. She has history of prior nicotine dependence in the past, several years ago, history of hypertension, history of paroxysmal atrial fibrillation, presented to [facility] after experiencing a fall/syncopal episode. Bud heard is providing history as well as her son who is at the bedside. According to the patient, she had one fall because she became unsteady on her feet, she hit the back of her head and has a swollen area there, subsequent to that the patient states that she had an episode where she fell flat on her face, she is unsure as to whether or not she lost consciousness or how she even fell to the floor, it appears that it was likely a syncopal episode. She does state that she gets intermittent episodes of lightheadedness and does get up from a sitting position to standing position fairly quickly when she feels lightheaded. Her laboratory data as well as other testing was performed at [facility], her initial troponin there was a 0.039, her EKG showed a normal sinus rhythm with peaked T waves, nonspecific ST-T wave changes. She was noted to have mild abnormality in d-dimer, a CAT scan of the head was performed which revealed a hematoma, no other acute findings. A chest x-ray was also performed which showed some mild COPD with no acute changes. Blood pressure here 138/60 with a heart rate in the 60s, 97% on room air, she is afebrile. Troponin 0.038, 0.051, 0.063. Creatinine is 0.8, CBC is normal. At the time of my examination this morning, the patient is sitting up at bedside, states that she feels well, denies any dizziness or lightheadedness. Her most recent office visit with Dr. Neri was in May 2019, she was directed at that time to take a regular a blood pressure recording at home, and was also recommended to have a 24-hour Holter before her next visit. 11/06/2019 Patient was seen and examined this morning, Blood pressure 134/60 lying 131/60 standing, heart rate in the 70s to 80s, 98% on room air. Ech0 Cardiogram with Doppler study was performed, which revealed an ejection fraction of 55-60%. Patient will be scheduled today to undergo implantation of a loop recorder. Objective - Vital Signs Vital signs: Vital Signs Temp 96.1 F L 11/06/19 08:00 Pulse 75 11/06/19 08:00 Resp 16 11/06/19 12:00 BP 187/87 11/06/19 12:00 Pulse Ox 95 11/06/19 12:00 Intake & Output 11/05/19 11/06/19 11/06/19 18:59 06:59 18:59 Intake Total 220 Balance 220 Weight 49.5 kg 50 kg Intake: IV 100 Oral 120 Other: # Voids 1 3 - Exam PHYSICAL EXAMINATION: GENERAL: 89-year-old female in no acute distress at the time of my examination HEENT: Head is atraumatic, normocephalic. Pupils equal, round. Sclera anicteric. Conjunctiva are clear. Mucous membranes of the mouth are moist. Neck is supple. There is no elevated jugular venous pressure. No carotid bruit is heard. Patient does have an area of swelling to her posterior scalp area, she has some ecchymosis noted below the eyes and on the nose. HEART EXAMINATION: Heart S1 and S2 systolic ejection murmur is heard CHEST EXAMINATION:[ Lungs are clear to auscultation and precussion. No chest wall tenderness is noted on palpation or with deep breathing.] ABDOMEN: [ Soft, nontender. Bowel sounds are heard. No organomegaly noted]. EXTREMITIES:[ 2+ peripheral pulses with no evidence of peripheral edema and no calf tenderness noted]. NEUROLOGIC [patient is awake, alert and oriented 3 .] - Labs CBC & Chem 7: 11/05/19 05:30 Labs: Abnormal Lab Results - Last 24 Hours (Table) 11/05/19 Range/Units 16:40 POC Glucose (mg/dL) 103 H (75-99) mg/dL Assessment and Plan Plan: Assessment and plan #1 syncope, rule out cardiac causes #2 abnormal d-dimer, rule out possibility of pulmonary embolism #3 history of hypertension #4 paroxysmal atrial fibrillation on Eliquis for anticoagulation, remaining in normal sinus rhythm at this time. #5 history of prior nicotine dependence #6 abnormality in troponin, rule out possibility of pulmonary embolism, patient denies any chest discomfort, not clinically suggestive of acute coronary syndrome. Plan Echocardiogram with Doppler study revealed a normal left ventricular systolic function. Patient will be scheduled today to undergo implantation of a loop recorder. No significant orthostatics documented. DNP note has been reviewed, I agree with a documented findings and plan of care. Patient was seen and examined.
--- NOTE | 2019-11-12 08:23 | CDI ---
Documentation Clarification Form Date: 11/12/19 From: Elidia Colbert CCS Phone: If you have a question about this query, please contact Celina Maharaj, Hospital Receiving Clerk at [phone] between 8am and 5pm. Admit Date: 11/06/19 Discharge Date: 11/06/19 Patient Name: Jagruti Thomas Visit Number: [id number] ATTENTION: The Clinical Documentation Specialists (CDI) and [facility] Coding Staff appreciate your assistance in clarifying documentation. Please respond to the clarification below the line at the bottom and electronically sign. The CDI & [facility] Coding staff will review the response and follow-up if needed. Please note: Queries are made part of the Legal Health Record. If you have any questions, please contact the author of this message via ITS. Dear Dr. Garland, Patient has been described as thin, underweight, involuntary weight loss. History/Risk Factors: AFIB, syncope, HTN, COPD Clinical Indicators: Underweight Patients weight is: 49.5 kg Patients height is: 5 ft 3 in Calculated BMI is: 19.3 Albumin: 3.2 Total Protein: 5.9 Treatments: Enlive TID Dietary Consult: 11/05/19 In order to capture the severity of condition associated with patient BMI of 19.3, a clinical diagnosis needs to be documented by the physician. Please clarify: Cachexia Underweight Malnutrition Mild Moderate Severe Other Unable to determine Underweight MTDD
== END 2019-11-06 14:12 | disposition home or self-care (01) | DRG 261 ==
LOC: EC 17:02 → 3SCARD 17:38 → INTOOBSV 17:38 → 3SCARD 19:51 → OBSVTOIN 11-06 07:04
PROVIDERS: ADMIT Hospitalist; ATTEND Hospitalist
PROC: 0JH602Z Insertion of Monitoring Device into Chest Subcutaneous Tissue and Fascia, Open Approach (ICD-10-PCS; principal; 2019-11-06 07:30)
DX: I49.5 Sick sinus syndrome (principal); Z68.1 Body mass index [BMI] 19.9 or less, adult; I95.9 Hypotension, unspecified; R55 Syncope and collapse; I48.0 Paroxysmal atrial fibrillation; S00.03XA Contusion of scalp, initial encounter; I10 Essential (primary) hypertension; M19.90 Unspecified osteoarthritis, unspecified site; M10.9 Gout, unspecified; R79.89 Other specified abnormal findings of blood chemistry; J44.9 Chronic obstructive pulmonary disease, unspecified; R63.6 Underweight; S02.2XXA Fracture of nasal bones, initial encounter for closed fracture; W18.30XA Fall on same level, unspecified, initial encounter; Z79.899 Other long term (current) drug therapy; Z79.01 Long term (current) use of anticoagulants; Z90.710 Acquired absence of both cervix and uterus; Z98.890 Other specified postprocedural states; Z87.891 Personal history of nicotine dependence
CPT/HCPCS: 33285; 36415; 71275; 80053; 80061; 84484; 93005; 93306; 96374; 99285